=== PATIENT | male | born 1985 ===

== ENCOUNTER 2018-01-13 17:04 | Emergency (ER) | payer OTHER ==
[2018-01-13 17:13] VITALS: BP 128/81; PULSE 84; RESP 16; TEMP 97.7; O2SAT 100
--- NOTE | 2018-01-13 18:05 | RAD ---
PROCEDURE: Radiographs of the Lumbar Spine. HISTORY: pain COMPARISON: No prior. FINDINGS: BONES: Normal alignment. No listhesis. No fracture. DISC SPACES: Unremarkable. OTHER FINDINGS: None. IMPRESSION: Unremarkable radiographs of the lumbar spine.
[2018-01-13] MEDS: Lidocaine 5% Patch TD STA (18:15)
--- NOTE | 2018-01-13 18:28 | ED PDOC ---
HPI: Back Time Seen by Provider: 01/13/18 17:17 Chief Complaint (Nursing): Back Pain Chief Complaint (Provider): Back Pain History Per: Patient History/Exam Limitations: no limitations Onset/Duration Of Symptoms: Days (past several weeks) Current Symptoms Are (Timing): Still Present Quality Of Discomfort: "Pain" Previous Symptoms: Back Pain Additional Complaint(s): 32 y/o male presents to the ED with atraumatic lower back pain. Patient states he has been suffering from the pain for the past several weeks. On 01/10/2018 patient attempted to sit on a chair when he lost his balance but was able to catch himself from falling. At that the time he felt minimal pain however the following day he felt extreme pain in hi slower back radiating down both legs with greater pain in his left leg. Seen at urgent care the day of the incident and was prescribed Ibuprofen, steroids, and Flexeril with no relief. PMD: None provided Past Medical History Reviewed: Historical Data, Nursing Documentation, Vital Signs Vital Signs: Last Vital Signs Temp 97.7 F 01/13/18 17:09 Pulse 84 01/13/18 17:09 Resp 16 01/13/18 17:09 BP 128/81 01/13/18 17:09 Pulse Ox 100 01/13/18 17:09 - Medical History PMH: Migraine - Surgical History Surgical History: No Surg Hx - Family History Family History: States: No Known Family Hx - Home Medications Home Medications: Ambulatory Orders Medication Instructions Recorded Lidocaine 5% [Lidoderm] 1 ea TD DAILY PRN #10 patch 01/13/18 Meloxicam [Mobic] 1 - 2 tab PO DAILY PRN #15 tab 01/13/18 Methocarbamol [Robaxin] 500 mg PO Q8 PRN #15 tablet 01/13/18 - Allergies Allergies/Adverse Reactions: Allergies Allergy/AdvReac Type Severity Reaction Status Date / Time No Known Allergies Allergy Verified 01/13/18 17:09 Review of Systems ROS Statement: Except As Marked, All Systems Reviewed And Found Negative Constitutional: Negative for: Other (recent trauma) Gastrointestinal: Negative for: Nausea, Vomiting, Abdominal Pain Genitourinary Male: Negative for: Dysuria, Incontinence, Hematuria Musculoskeletal: Positive for: Back Pain (lower back pain), Leg Pain (radiating pain from back through legs, greater in left leg) Physical Exam - Reviewed Nursing Documentation Reviewed: Yes Vital Signs Reviewed: Yes - Physical Exam Appears: Positive for: No Acute Distress Head Exam: Positive for: ATRAUMATIC, NORMAL INSPECTION, NORMOCEPHALIC Eye Exam: Positive for: EOMI, Normal appearance, PERRL ENT: Positive for: Normal ENT Inspection Neck: Positive for: Normal, Painless ROM Gastrointestinal/Abdominal: Positive for: Normal Exam Back: Positive for: Normal Inspection, Muscle Spasm (bilateral paralumbar tenderness). Negative for: L CVA Tenderness, R CVA Tenderness, Vertebral Tenderness Extremity: Positive for: Normal ROM. Negative for: Other (bilateral leg raises and gait is steady) Neurologic/Psych: Positive for: Alert, Oriented (x3) - ECG O2 Sat by Pulse Oximetry: 100 (RA) Pulse Ox Interpretation: Normal Medical Decision Making Medical Decision Making: Time: 17:09 Impression: Plan: * Valium 10 mg PO * Toradol 30 mg IM * Lidocaine Patient has an appointment scheduled with a greenhouse specialist on Thursday On re-evaluation, pt. reports good relief of pain. Scribe Attestation: Documented by Mikki Garay acting as a scribe for German Patrick PA-C. MD Scribe Attestation: All medical record entries made by the Scribe were at my direction and personally dictated by me. I have reviewed the chart and agree that the record accurately reflects my personal performance of the history, physical exam, medical decision making, and the department course for this patient. I have also personally directed, reviewed, and agree with the discharge instructions and disposition. Disposition - Clinical Impression Clinical Impression: Sciatica - Patient ED Disposition Is Patient to be Admitted: No - Disposition Referrals: [facility] [Outside] Disposition: Routine/Home Disposition Time: 18:25 Condition: IMPROVED Additional Instructions: Follow up with greenhouse specialist on Wednesday as scheduled Return to ED immediately if symptoms worsen Prescriptions: Lidocaine 5% [Lidoderm] 1 ea TD DAILY PRN #10 patch PRN Reason: Pain Meloxicam [Mobic] 1 - 2 tab PO DAILY PRN #15 tab PRN Reason: Pain Methocarbamol [Robaxin] 500 mg PO Q8 PRN #15 tablet PRN Reason: Muscle Spasm Instructions: Sciatica (DC), Sciatica Exercises Forms: [facility] ([place]), [facility] School/Work Excuse Print Language: FRISIAN
== END 2018-01-13 18:32 | disposition home or self-care (01) ==
LOC: H.ER 17:04
DX: M54.32 Sciatica, left side (principal)
CPT/HCPCS: 72100; 96372; 99283; J1885